=== PATIENT | male | born 1970 | race Caucasian/White ===

== ENCOUNTER 2023-08-29 20:07 | Observation (INO) | payer OTHER, SELFPAY ==
[2023-08-29 16:59] VITALS: BP 180/108
[2023-08-29 17:05] LABS: Glucose - Point of Care 103 mg/dl (70-99)
[2023-08-29 17:13] VITALS: BMI 39.0
[2023-08-29 17:19] VITALS: BP 168/90
[2023-08-29 17:24] LABS: % Basophils 0.7 % (0-2); % Eosinophils 3.1 % (0-6); % Immature Granulocytes 0.2 % (0-0.5); % Lymphocytes 37.9 % (20.5-51.1); % Monocytes 13.2 % (1.7-9.3); % Neutrophils 44.9 % (42.2-75.2); Absolute Eosinophils 0.1 10^3/uL (0-0.7); Absolute Lymphocytes 1.6 10^3/uL (1.2-3.4); Absolute Monocytes 0.6 10^3/uL (0.1-0.6); Absolute Neutrophils 1.9 10^3/uL (1.4-6.5); Hematocrit 47.5 % (39.0-52.0); Hemoglobin 16.6 g/dL (13.0-18.0); Mean Corp Hgb Conc. 34.9 g/dL (33.0-37.0); Mean Corpuscular Hgb 30.5 pg (27.0-31.0); Mean Corpuscular Volume 87.3 fL (80.0-94.0); Mean Platelet Volume 9.9 fL (7.4-10.4); Nucleated Red Blood Cells % 0 % (-); Platelet Count 157 10^3/uL (130-400); Red Blood Cell Count 5.44 10^6/uL (4.70-6.10); Red Cell Dist. Width 13.2 % (11.5-14.5); White Blood Cell Count 4.3 10^3/uL (4.8-10.8)
[2023-08-29 17:34] LABS: INR 1.07; PT 13.7 Sec (11.4-14.6)
[2023-08-29 17:35] LABS: APTT 29.7 Sec (23.4-35.0)
[2023-08-29 17:45] LABS: ALT (SGPT) 63 U/L (0-50); AST (SGOT) 52 U/L (17-59); Albumin 4.6 g/dl (3.5-5.0); Alkaline Phosphatase 47 U/L (38-126); Blood Urea Nitrogen 16 mg/dl (9-20); Calcium 9.7 mg/dl (8.4-10.2); Carbon Dioxide 23 mmol/L (22-30); Chloride 103 mmol/L (98-107); Estimated Creatinine Clearance > 125 ml/min; Glucose 103 mg/dl (70-99); Potassium 4.4 mmol/L (3.5-5.1); Sodium 137 mmol/L (135-145); Total Bilirubin 0.9 mg/dl (0.2-1.3); Total Protein 7.3 g/dl (6.3-8.2); eGFR > 60.00
[2023-08-29 17:55] LABS: Troponin I < 0.012 ng/ml
[2023-08-29] MEDS: ASPIRIN 325 MG PO (19:11)
[2023-08-29] MEDS: PLAVIX 300 MG PO (19:12)
[2023-08-29 19:18] VITALS: BP 148/93
--- NOTE | 2023-08-29 19:57 | HPS.HSE ---
Family Physician
-
Family Physician: John Abbott
Chief Complaint
-
Numbness
History of Present Illness
Patient is a 52y M with PMH significant for hypothyroidism and obesity who presents to ED complaining of numbness and tingling. Patient states that he felt well this AM upon waking. He noted numbness / tingling sensation of his L lower lip
around 9AM. He describes it as feeling as if he had just left the dentist. Patient states that the numbness gradually expanded throughout the day to include the L cheek / jaw area. He called his PCP and was seen at their office this afternoon.
At that time, he also appreciated some numbness in the L shoulder area. He was referred to the ED for further evaluation.
Patient denies any focal weakness, facial asymmetry, slurred speech, vision changes, headache, etc.
He denies any prior history of similar symptoms in the past. He denies any recent trauma / injury. He has no neck stiffness / pain / etc.
In the ED, patient continues to note some numbness in the face / anterior shoulder area.
Medical History
Past Medical History
Past Medical History: Reports Other
Additional Past Medical History:
Hypothyroidism
Obesity
Hypertension
Past Surgical History: Reports Other
Additional Past Surgical History:
Left Finger Surgery (trauma / reattachment)
Social History
Tobacco: Smoker (Current every day smoker. 1/2 ppd. Total of 20 pack years.)
Alcohol: Occasional (Rarely.)
Drug: None
Personal:
Living: With Family
Family History
Family History: Not pertinent
Allergies / Home Medications
Allergies reflects when Allergies were last updated in [facility].
Home Medications with original date entered in [facility]
Allergy/Medication List:
Allergies
Allergy/AdvReac Type Severity Reaction Status Date / Time
No Known Allergies Allergy Verified 08/29/23 17:02
Home Medications
cholecalciferol (vitamin D3) 25 mcg (1,000 unit) tablet (Vitamin D3) 25 mcg PO DAILY 08/29/23
levothyroxine 175 mcg tablet 175 mcg PO DAILY 08/29/23
magnesium 250 mg tablet 250 mg PO DAILY 08/29/23
multivitamin 1 tab PO DAILY 08/29/23
zinc acetate 50 mg (zinc) capsule 50 mg PO DAILY 08/29/23
Review of Systems
-
History Source: Patient
A 12 point ROS was completed and negative except as noted: Yes
Constitutional: Denies Fever, Fatigue or Chills
EENT: Denies Sore Throat
Respiratory: Denies Cough or Trouble Breathing
Cardiac: Denies Chest Pain or Palpitations
Abdomen/GI: Denies Abdominal Pain, Nausea or Vomiting
: Denies Dysuria or Frequency
Musculoskeletal: Denies Joint Pain or Edema
Neurological: Reports Numbness; Denies Dizzy, Headache or Weakness
Psych: Denies Depression or Anxiety
Physical Exam
Vital Signs
Vital Signs
Temp Pulse Resp BP Pulse Ox
98.6 F 98 16 180/108 97
08/29/23 16:59 08/29/23 16:59 08/29/23 16:59 08/29/23 16:59 08/29/23 16:59
Physical Exam
General: Other (52y M in no acute distress.)
HEENT: Moist mucous membranes and PERRLA
Respiratory: Clear; No Wheezes, Rales or Rhonchi
Cardiac: S1/S2 and Regular Rhythm; No Murmur
GI: Soft, Non Tender, Non Distended and Normal Bowel Sounds
Musculoskeletal: No Clubbing, No Cyanosis and No Edema
Neuro: AO x 3 and Other (Sensation appears intact and symmetric. No motor deficits, slurred speech, facial asymmetry.)
Laboratory Results
-
08/29/23 17:08
05/30/24 17:08
Laboratory Results
PT 13.7 Sec (11.4-14.6) 08/29/23 17:08
INR 1.07 08/29/23 17:08
APTT 29.7 Sec (23.4-35.0) 08/29/23 17:08
Total Bilirubin 0.9 mg/dl (0.2-1.3) 08/29/23 17:08
AST 52 U/L (17-59) 08/29/23 17:08
ALT 63 U/L (0-50) H 08/29/23 17:08
Alkaline Phosphatase 47 U/L (38-126) 08/29/23 17:08
Troponin I < 0.012 ng/ml 08/29/23 17:08
Impression/Plan
-
A/P: Patient is a 52y M with PMH significant for hypothyroidism and obesity who presents to ED for evaluation of L facial numbness and tingling.
Paresthesias
CVA / TIA
- Observe overnight for further evaluation and treatment.
- Initial CT head is unremarkable.
- Not TNK candidate given mild deficit + timing of presentation.
- Follow serial exams.
- ASA + Plavix for now.
- Neurology evaluation in the AM.
- MRI / MRA head and neck in the AM.
- Follow for any new / worsening symptoms.
- Check AM lipids. Consider statin if appropriate.
Essential Hypertension
- BP elevated in the ED at 180/108.
- Patient with history of hypertension but notes that he was able to discontinue meds after significant weight loss (300 to 220 lbs).
- Interestingly, this weight loss occurred off of T4 supplementation and patient notes that he has started to gain weight since restarting that med?
- Monitor for now with permissive hypertension. IV hydralazine as needed for SBP > 200.
- Adjust medications as needed for goal of normotension prior to discharge.
Hypothyroidism
- Continue current T4 supplementation.
- Update TFTs.
Tobacco Use Disorder
- Encourage smoking cessation.
- Patient declined nicotine replacement.
Obesity due to excess calories
- Affects all aspects of care.
- Patient notes significant weight loss over the past few years - though has started to regain some of that weight.
- Encourage continued healthy diet and increased exercise with goal of weight loss.
DVT Prophylaxis: SCDs
Code Status: Full
[2023-08-29 20:00] VITALS: BP 153/94
--- NOTE | 2023-08-29 20:17 | ED.GENMED ---
History of Present Illness
General
Chief Complaint: Numbness
Source: patient and spouse
Exam Limitations: none
Time Seen by Provider: 08/29/23 17:06
Nursing documentation reviewed up to this point in time: agreed with
Travel History
Have you had any contact with someone who has COVID-19?: No
Do you have any symptoms of coronavirus? Fever > 100 degrees, chills, cough, shortness of breath, sore throat, loss of taste or smell, muscle aches, or headache?: No
History of Present Illness
History of Present Illness:
52-year-old male with a past medical history of hypertension, hyperlipidemia, obesity, smoker who presents to the emergency room for evaluation of left facial numbness and shoulder numbness. Patient reports that he had acute onset of his symptoms
while he was driving this morning at around 8:30 AM. He says that he noticed numbness in the left lip that progressed to left facial and jaw numbness. He says that the symptoms have persisted throughout the day. He went to see his primary doctor
this afternoon for evaluation of his symptoms and while he was there he noticed progression of the numbness to the left upper arm. His primary doctor sent her to the emergency room to be evaluated with concern for possible stroke. He denies any
weakness in the extremities. He denies any change in his vision or speech. He has not noticed any facial droop. He denies any headache. He denies any neck pain. Denies any chest pain or palpitations. He denies having had similar symptoms in
the past.
Past History
Past History
ED Past Medical History: None
Social History
Tobacco: Smoker
Alcohol: Occasional
Living: with family
Employment: Employed
Review of Systems
Review of Systems
All Other Systems: ROS reviewed and negative except as documented in HPI and ROS
Constitutional: Denies fever
EENT: Reports other (Facial numbness)
Respiratory: Denies cough or trouble breathing
Cardiac: Denies chest pain or palpitations
ABD/GI: Denies abdominal pain, nausea or vomiting
: Denies flank pain
Musculoskeletal: Denies neck pain or back pain
Neurological: Reports numbness; Denies dizzy, headache or weakness
Phy Exam
Physical Exam
Physical Exam:
General: Awake, alert, oriented x3; no acute distress
Head: Normocephalic, atraumatic
Eyes: Conjunctiva normal, EOMI, pupils equal round and reactive to light bilaterally
Throat: Airway intact, handling secretions
Neck: Trachea midline, supple without meningismus
Lungs: Clear to auscultation bilaterally, no wheezing, rales, rhonchi
Heart: Regular rate and rhythm, no murmurs, gallops, or rubs
Abd: Soft, non distended, nontender
Neuro: Patient has subjective sensory deficit V2 and V3 distribution of the trigeminal nerve; cranial nerves otherwise intact 2 through 12; no limb ataxia; speech is fluid and there is no dysarthria or aphasia; motor function is intact 5/5
proximally and distally in the upper and lower extremities; he has a subjective sensory deficit in the left upper arm but is not limited to a dermatome, sensory function seems to be intact distal left upper extremity and is intact in the rest of his
extremities
Skin: no rash
Extremities: No edema in extremities, equal pulses in all extremities
Scores
NIH Stroke Score
Level of Consciousness: 0 - Alert
LOC Questions: 0-Answers both correctly
LOC Commands: 0-Performs both correctly
Best Horizontal Gaze: 0-Normal
Visual [place]: 0=Normal, no visual loss
Facial Palsy: 0=Normal, symmetrical
Motor - Right Arm: 0=No drift 10 seconds
Motor - Left Arm: 0=No drift 10 seconds
Motor - Right Le-No drift 5 seconds
Motor - Left Le-No drift 5 seconds
Limb Ataxia: 0-Absent
Sensation: 1-Mild loss
Best Language: 0-No aphasia
Dysarthria: 0-Normal
Extinction and Inattention: 0-No abnormality
Total Score:: 1
Thrombolytic Contraindication
Inclusion and Exclusion criteria reviewed: Yes
Reasons for NON-Tx with Thrombolytics ABSOLUTE Exclusions: Greater than 4.5 hrs from onset of sxs
Heart Failure Risk
Heart Failure Risk Score: Not Applicable
Heart Score for Chest Pain Patients
STEMI patient?: Not applicable
Withdrawal Assessment of Alcohol
Withdrawal Assessment Completed?: Not applicable
Course
Orders/Labs/Results
Orders:
Orders
08/29/23 17:05
Electrocardiogram (*1) Urgent
Reason for Study: TIA/Stroke
EKG- Treatment ONCE
08/29/23 17:06
EKG [Electrocardiogram (*1)] Urgent
Reason for Study: Other
Other Reason for Exam: md order
CT Head W/o Iv Contrast Urgent
Comment:
Reason For Exam: left facial numbness
08/29/23 17:07
EKG- Treatment ONCE
08/29/23 17:08
Complete Blood Count/With Diff Urgent
Comprehensive Metabolic Panel Urgent
PTT Urgent
Prothrombin Time Urgent
Troponin I Urgent
08/29/23 18:52
NEUROLOGY CONSULT Urgent
Consulting Provider: Otf Varela
Was physician already notified: Yes
Aspirin 325 mg PO NOW STA
Clopidogrel Bisulfate [Plavix] 300 mg PO NOW STA
08/29/23 19:53
Admit/Transfer Patient As Directed
Co-Sign Provider:
Level of Care: Observation services
Assign to:: Telemetry
Physician / Group: Miguel
Diagnosis: CVA / TIA
Reason for Telemetry: CVA/TIA
Date to Stop Telemetry: 09/01/23
Time to Stop Telemetry: 11:00
Code Status As Directed
Resuscitation Status: Full Code
09/01/23 11:00
DC Protocol for Telemetry ONCE
Abnormal Lab Results
08/29/23 08/29/23
17:02 17:08
WBC 4.3 L 10^3/uL
(4.8-10.8)
Monocytes % 13.2 H %
(1.7-9.3)
Glucose 103 H mg/dl
(70-99)
ALT 63 H U/L
(0-50)
POC Glucose 103 H mg/dl
(70-99)
08/29/23 17:08
08/29/23 17:08
Vital Signs
Initial and Last Documented VS:
Initial Vital Signs
Temp Pulse Resp BP Pulse Ox
37.0 C 98 16 180/108 97
08/29/23 16:59 08/29/23 16:59 08/29/23 16:59 08/29/23 16:59 08/29/23 16:59
Last Documented Vital Signs
Temp Pulse Resp BP Pulse Ox
37.0 C 76 19 153/94 95
08/29/23 16:59 08/29/23 20:00 08/29/23 19:45 08/29/23 20:00 08/29/23 20:00
MDM/Problems Addressed
Differential Diagnosis Includes:
Cervical radiculopathy, peripheral nerve palsy, stroke, electrolyte derangement
MDM/Problems Addressed:
52-year-old male with history as documented presents for evaluation of numbness in the face and left upper arm onset at 8:30 AM. No other neurologic symptoms or complaints. He arrived was hypertensive but with otherwise normal vitals. Physical
exam as above. He is outside the window for tPA/TNK and thus no stroke alert called. Will place an IV check labs including a CBC and a CMP. Will check an EKG and troponin although much lower suspicion that this is anginal equivalent. Will check
CT head. Will monitor closely reassess after the above.
Labs reviewed: CBC unremarkable, CMP no clinically significant abnormalities. His troponin is undetectable and with constant symptoms since 8:30 AM this is sufficient to rule out acute PA. His CT head shows no acute pathology. Case was discussed
with neurology�anatomy would be somewhat atypical for cervical radiculopathy given extension of sensory symptoms in the face. Could be a sensory only stroke especially with his significant risk factors and hypertension. Recommended treating with
aspirin and Plavix and admission for further workup to rule out CVA. No indication for emergent neck imaging right now, plan for MRI/MRA in AM. Case discussed with hospitalist for admission.
Chronic conditions affecting care:
Hypertension, hyperlipidemia, obesity, smoking�place him at higher risk for stroke
Acute Exacerbation and/or Progression of Chronic Illness:
Acutely hypertensive�permissive in the setting of possible CVA
Acute Exacerbation and/or Progression of Chronic Illness: HTN
*Radiology
Radiology exam reviewed: radiology read reviewed
*Pulse Oximetry
Patient hypoxic: no
*EKG
Interpreted by ED Provider?: Yes
Heart Rate: 85
Rate: normal
Rhythm: sinus
[place]: normal axis
Interval: normal interval
QRS Pattern: normal QRS
Ischemia: no ischemia
*Critical Care Note
Total Time (30-74mins, 75-104mins- exclusive of procedures): Not Applicable
Data Reviewed
Review of Other/Old Records Reveals: Labs and Records
Source: patient, spouse and physician (Discussed with primary physician via [place] text who referred to the ER)
Further Testing Considered But Not Given:
Considered need for CTA head and neck but after discussion with neurology will hold off
Patient Management
Discussion with other providers: Hospitalist (Discussed with hospitalist) and [employer] (Discussed with neurologist)
Escalation/DeEscalation of care consider admission/obs:
Admission indicated
ED Attending Note
-
Portions of this chart may have been created with voice recognition software.� Occasional wrong word or��sound alike� substitutions may have occurred due to the inherent limitations of voice recognition software.
Discharge Plan
Departure
Patient Disposition: Admit
Date of Disposition: 08/29/23
Time of Disposition: 18:55
Presentation/result/management discussed w/ accepting MD/DO: Hospitalist
Discharge Problem:
Acute CVA (cerebrovascular accident), Hypertension
Interventions
Interventions:
*Risk Screen - Suicide Last Done: 08/29/23 17:17
*General Assessment Last Done: 08/29/23 17:14
*Neglect/Abuse Screening Last Done: 08/29/23 17:17
ED- Fall Risk Assessment Last Done: 08/29/23 17:19
*ED COVID-19 Vaccine History Last Done: 08/29/23 17:14
ED- Neurological Assessment Last Done: 08/29/23 18:58
[2023-08-29 21:25] VITALS: BP 148/82
[2023-08-29 21:26] VITALS: BMI 37.2
[2023-08-29 22:47] LABS: TSH Reflex To Free T4 3.93 uIU/ml (0.47-4.68)
[2023-08-29 23:08] VITALS: BP 125/79
--- NOTE | 2023-08-29 23:40 | PTCARENOTE ---
Pt. arrived to 3W from the ED via stretcher. Pt. able to safely ambulate into room 316-1. [facility] 0. at bedside with patient. Patient AAOx3 and able to make needs known. Oriented to unit. Call agudelo within reach. Plan of care ongoing.
[2023-08-30] VITALS (7 sets, daily range): BP systolic 120–175; BP diastolic 72–103; PULSE 58–78; O2SAT 97; BMI 37.1
[2023-08-30] MEDS: SYNTHROID 175 MCG PO (05:44)
--- NOTE | 2023-08-30 08:02 | CON.NEURO4 ---
Addendum entered and electronically signed by Otf Varela MD 08/30/23 10:59:
I saw and evaluated the patient I reviewed the note by Justina Beckett and agree with the findings the following comments:
52-year-old male with a past medical history of hypothyroidism obesity former hypertension no longer on medication presented to hospital with left facial and arm paresthesia. His symptoms are still present to a minor extent on the left side of
face. He describes it as similar to a numbing by the dentist. The symptoms started yesterday around 9 AM beginning on the left side of face then involving the left jaw and ear and then left shoulder. No history of similar events no recent head or
neck trauma or any neck or spine issues. No walking difficulties or weakness or any incoordination or weakness of hand or coordination of hand function. No family history of early stroke TIA or coronary events. He had lost a lot of weight oddly
after stopping medications for hypothyroidism, after weight loss blood pressure improved and no longer taking blood pressure medications and also had formerly been on atorvastatin but due to weight loss and improved with no longer taking aspirin.
No history of migraine-like headaches with any history of any migraine aura.
Neurologic examination is unremarkable, normal mental status cranial nerves motor function of the hands and arms and gait
Spurling maneuver is negative
MRI brain shows no acute or chronic infarction no hemorrhages masses or edema seen
MRA of the head shows no significant intracranial stenosis or occlusion or aneurysm, P-comm on the left side
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
Assessment: Likely this is a more benign disorder such as cervical area peripheral nerve irritation. No symptoms of weakness that would warrant a brain MRI of the cervical spine.
Patient's symptoms are still ongoing but improved and present to a minor extent so this would not be a TIA.
Do not feel that this is MRI negative stroke.
Recommendations
-Can stop the order for transthoracic echocardiogram
-Can discontinue aspirin and clopidogrel
-Reassured the patient that this will most likely improve with time, and to be watchful for any signs of left hand or arm weakness. Not seeing indication for cervical spine imaging with no weakness, pain, or walking difficulty
-No barriers to discharge
Original Note:
Documented by User: Justina Bishop NP 08/30/23 10:15
Consultation - Neurology 4
-
CONSULTING PHYSICIAN: Baljeet Varela MD
REFERRING PHYSICIAN: ER/Dr. Richards
DICTATED BY: SAV Hernandez
DATE/TIME OF REQUEST: 08/29/23
DATE/TIME OF CONSULTATION: 08/30/23
Reason for Consultation: CVA
History of Present Illness:
This is a 52-year-old right-handed male who has presented to the hospital on 08/29/23 with report of numbness. Patient reports that he woke up yesterday (08/29/23) feeling in his usual state. He went to work and was driving around 0830 when he
suddenly developed numbness on the left side of his mouth. The numbness then spread to his left jaw and up towards his left ear. He describes the numbness as the feeling of novocaine wearing off. he called his PCP and they had him come in for
evaluation. In his PCP's office the numbness spread to his left shoulder and they referred him to the ER for further evaluation. CT head was obtained on arrival in the ER and is negative for any acute abnormalities. Blood pressure was 180/108. By
1400 his symptoms started improving and the numbness was mostly isolated to his left mouth. NIHSS was 1 and he was not a candidate for TNK/IAT due to low NIHSS/improving symptoms. Today (08/30/23), patient reports that he still has slight numbness on
his left lower lip, otherwise his symptoms have resolved. He denies any headache, dizziness, vision changes, speech/swallow difficulty, neck/back pain, weakness, nausea, chest pain, palpitations, and shortness of breath. He reports having high blood
pressure years ago but he lost a significant amount of weight and his blood pressure normalized. He has been on atorvastatin in the past but reports his cholesterol improved and he also stopped taking that. He denies any head/neck injuries. He also
reports having mild sinus infection symptoms one week ago. He denies any history of migraines, TIA, stroke, or events similar to this in the past. He is not taking any blood-thinning medications.
Past Medical History: HTN, HLD, hypothyroidism, abdominal lymphadenopathy, obesity
Surgical History: Left hand middle finger repair
Family History: Reviewed and noncontributory.
Social History: Current smoker, 10 cigarettes/day. Rare alcohol. No illicit drug use.
Allergies: No known allergies.
Home Medications: See below.
Review of Symptoms:
Patient denies any fever, headache, chest pain, shortness of breath, GI or symptoms.
�Per the HPI.�All systems are reviewed negative except above.
Physical Exam:
The patient is afebrile, abdomen is nondistended, breathing is unlabored, skin is warm and dry, no edema.
NIH Stroke Scale:
I performed the NIH stroke scale on the patient on 08/30/23 at 0820. The patient scored 1 points on the NIH stroke scale assessment, which were assigned as follows: See below.
Neurologic Examination:
The patient is awake, alert and oriented x 3. He is able to follow commands and answer questions appropriately. There is no aphasia or dysarthria. On cranial nerve assessment, pupils are 3 mm bilateral, round and reactive to light and
accommodation. Visual velarde are full. Extraocular movements are intact. Facial sensations are intact and bilaterally symmetrical, there is no facial asymmetry. Hearing is intact bilaterally to normal conversation volume. Tongue palate and uvula are
midline. Sternocleidomastoid strengths are full bilaterally. Motor strengths are 5/5 bilateral upper and lower extremities on medical research [place] scale. There is no drift or involuntary movement noted. Deep tendon reflexes are 2+ bilateral
upper and lower extremities and Babinski is absent bilaterally. Sensations of touch, temperature and vibration are intact and bilaterally symmetrical. There was no extinction noted on double simultaneous stimulation. Coordination is intact by finger
to nose bilaterally.
Lab Results: See below.
Neuro Imaging:
1. CT Head 08/29/23: No acute intracranial abnormality noted
Differentials for the patient's presentation include:
1. Concern for a small ischemic stroke or TIA possibly producing symptoms given significant risk factors for stroke.
2. Metabolic disturbance possibly producing symptoms but less likely.
Patient has the following risk factors for their symptoms: HTN, HLD, smoker
IV Tenecteplase/IAT candidacy: NIHSS was 1 and he was not a candidate for TNK/IAT due to low NIHSS/improving symptoms.
Recommendations:
-Continue DAPT with aspirin 81mg and Plavix 75mg daily for 21 days. After 21 days, discontinue Plavix and continue aspirin 81mg daily only, indefinitely.
-MRI brain, MRA head/neck pending.
-Goal normotension.
-TTE pending.
-LDL goal <70. LDL is 136. Initiate atorvastatin 40mg daily.
-Goal normoglycemia, hbA1c is pending.
-NIHSS and neurological checks per unit guidelines.
-Provide patient with a stroke education packet.
-Smoking cessation counseling.
-PT/OT/St evaluations.
-DVT prophylaxis.
-Will follow pending results.
Discussed patient care with: Dr. Varela, the patient
Vital Signs and Labs
-
Vital Signs and Labs:
Vital Signs
Temp Pulse Resp BP Pulse Ox
97.8 F 67 16 157/100 95
08/30/23 07:00 08/30/23 07:00 08/30/23 07:00 08/30/23 07:00 08/30/23 07:00
PT 13.7 Sec (11.4-14.6) 08/29/23 17:08
INR 1.07 08/29/23 17:08
APTT 29.7 Sec (23.4-35.0) 08/29/23 17:08
Sodium 137 mmol/L (135-145) 08/29/23 17:08
Potassium 4.4 mmol/L (3.5-5.1) 08/29/23 17:08
BUN 16 mg/dl (9-20) 08/29/23 17:08
Glucose 103 mg/dl (70-99) H 08/29/23 17:08
Calcium 9.7 mg/dl (8.4-10.2) 08/29/23 17:08
Medications
-
Active Medications
Generic Name Dose Route Start Last Admin
Trade Name Freq PRN Reason Stop Dose Admin
Acetaminophen 650 mg 08/29/23 21:07
Acetaminophen 325 Mg Tablet PO 09/26/23 21:06
Q4HPRN PRN
Mild Pain / Temp > 101
Aspirin 81 mg 08/30/23 08:00
Aspirin 81 Mg Chewable Tablet PO 09/27/23 07:59
DAILY SILAS
Clopidogrel Bisulfate 75 mg 08/30/23 08:00
Clopidogrel 75 Mg Tablet PO 09/27/23 07:59
DAILY SILAS
Hydralazine HCl 5 mg 08/29/23 21:07
Hydralazine 20 Mg/Ml Vial IV 09/26/23 21:06
Q6HPRN PRN
SBP > 200
Levothyroxine Sodium 175 mcg 08/30/23 06:00 08/30/23 05:44
Levothyroxine 175 Mcg Tablet PO 09/27/23 05:59 175 mcg
DAILY @ 0600 SILAS Administration
Sodium Chloride 0 flush 08/29/23 22:00
Sodium Chloride 0.9% (Flush) Syringe IV 09/26/23 21:59
PER PROTOCOL SILAS
Home Medications
�Medication �Instructions �Recorded
cholecalciferol (vitamin D3) 25 25 mcg PO DAILY 08/29/23
mcg (1,000 unit) tablet (Vitamin
D3)
levothyroxine 175 mcg tablet 175 mcg PO DAILY 08/29/23
magnesium 250 mg tablet 250 mg PO DAILY 08/29/23
multivitamin 1 tab PO DAILY 08/29/23
zinc acetate 50 mg (zinc) capsule 50 mg PO DAILY 08/29/23
NIH Stroke Score
Subsequent NIH Scale
Date of Subsequent NIH Scale: 08/30/23
Time of Subsequent NIH Scale: 08:20
NIH Stroke Score
Level of Consciousness: 0 - Alert
LOC Questions: 0-Answers both correctly
LOC Commands: 0-Performs both correctly
Best Horizontal Gaze: 0-Normal
Visual Velarde: 0=Normal, no visual loss
Facial Palsy: 0=Normal, symmetrical
Motor - Right Arm: 0=No drift 10 seconds
Motor - Left Arm: 0=No drift 10 seconds
Motor - Right Le-No drift 5 seconds
Motor - Left Le-No drift 5 seconds
Limb Ataxia: 0-Absent
Sensation: 1-Mild loss
Best Language: 0-No aphasia
Dysarthria: 0-Normal
Extinction and Inattention: 0-No abnormality
Total Score:: 1
Modified [place] (mRS) Score
Modified [place] Scale (mRS): No significant disability. Able to carry out usual activities.
Score: 1

Documented by User: Otf Varela MD 08/30/23 10:54
NIH Stroke Score
NIH Stroke Score
Total Score:: 1
Modified [place] (mRS) Score
Score: 1
[2023-08-30] MEDS: PLAVIX 75 MG PO (08:07)
[2023-08-30] MEDS: LOW STRENGTH ASPIRIN 81 MG PO (08:07)
[2023-08-30 08:14] LABS: Hematocrit 44.2 % (39.0-52.0); Mean Corp Hgb Conc. 33.9 g/dL (33.0-37.0); Mean Corpuscular Hgb 29.9 pg (27.0-31.0); Mean Corpuscular Volume 88.2 fL (80.0-94.0); Mean Platelet Volume 10.3 fL (7.4-10.4); Platelet Count 136 10^3/uL (130-400); Red Blood Cell Count 5.01 10^6/uL (4.70-6.10); Red Cell Dist. Width 13.2 % (11.5-14.5); White Blood Cell Count 3.5 10^3/uL (4.8-10.8)
[2023-08-30 09:08] LABS: Blood Urea Nitrogen 16 mg/dl (9-20); Calcium 8.7 mg/dl (8.4-10.2); Carbon Dioxide 24 mmol/L (22-30); Chloride 106 mmol/L (98-107); Estimated Creatinine Clearance > 125 ml/min; Glucose 107 mg/dl (70-99); HDL Cholesterol 36 mg/dl; LDL Cholesterol, Calculated 136 mg/dl; Potassium 4.3 mmol/L (3.5-5.1); Sodium 135 mmol/L (135-145); Total Cholesterol 211 mg/dl (50-199); Triglyceride 198 mg/dl (10-149); Very Low Density Lipoprotein 39 mg/dl (0-30); eGFR > 60.00
--- NOTE | 2023-08-30 10:09 | PTOTSP ---
PATIENT FUNCTIONING INDEPENDENTLY ON LEVEL SURFACES WELL ELEVATIONS REQUIRING NO ACUTE CARE SKILLED P.T. AT THIS TIME. WILL DISCHARGE FROM P.T. SERVICES.
--- NOTE | 2023-08-30 10:54 | PTOTSP ---
SPEECH THERAPY SWALLOW EVALUATION:
Patient exhibits grossly functional oropharyngeal swallow at this time. No predisposing dysphagia risk factors. MRI results negative for CVA. Patient reporting he feels back at baseline level of functioning at this time; Denied speech/language
impairments. No further speech or swallow follow up is indicated at this time. Recommend Regular texture diet, thin liquids. Meds whole with liquid as best tolerated.
RECOMMEND:
1) Regular texture diet, thin liquids
2) Meds whole with liquid as best tolerated
3) Swallow follow up is not indicated at this time
[2023-08-30 11:59] LABS: Glycohemoglobin (HgbA1c) 5.7 % (4.0-5.6)
[2023-08-30 12:27] LABS: Folate 10.8 ng/ml (2.76-20); Vitamin B12 288 pg/ml (239-931)
--- NOTE | 2023-08-30 13:09 | W.PN.HOSP.TC ---
Today's Communication/Plan
-
Await echocardiogram
Discharge
Assessment / Plan
Assessment / Plan
Gen-AAOx3, NAD, obese
HEENT-NC, AT, anicteric, clear oral mm
Neck-supple
CV-reg, no M, +S1/S2
Lungs-clear B/L
Abd-soft, NT, ND
Ext-no edema
Musculoskeletal-no cyanosis, clubbing
Skin-warm and dry
Neuro-grossly non-focal
Psych-calm, cooperative
Left facial/left arm paresthesias -appreciate neurology input. No stroke noted on brain MRI. Peripheral nerve lesion possible. Cleared by neurology for discharge.
Neurology attempted to cancel echocardiogram but unfortunately it was already completed. Will follow-up report.
Elevated blood pressure -unclear if underlying essential hypertension. Patient claims his blood pressures at home are normal, not on antihypertensives at home. He states his blood pressures in the doctor's office are not elevated as well.
Encouraged him to monitor blood pressure closely at home as he is certainly at risk for hypertension.
Leukopenia -RBC and platelet count normal. This may be his normal level. Recommend outpatient follow-up with PCP.
Impaired fasting glucose - hemoglobin A1c 5.7%. Weight loss encouraged.
Low Vitamin B12 level -start oral repletion.
Hypothyroidism -continue Synthroid. TSH normal.
Tobacco dependence - smoking cessation encouraged. He smokes 10 cigarettes daily.
Obesity due to excess calories
Full code
Dispo -anticipate discharge this afternoon. Await echocardiogram report prior to discharge.
updated at the bedside.
Anticipated Discharge: Today
Subjective/Interval History
-
Date of Service: August 30, 2023
Patient seen and examined. No complaints currently.
Objective Data
-
Labs:
Laboratory Results
08/30/23
07:20
WBC 3.5 L
Hgb 15.0
Hct 44.2
Plt Count 136
Sodium 135
Potassium 4.3
Chloride 106
Carbon Dioxide 24
BUN 16
Creatinine 0.7
Glucose 107 H
Calcium 8.7
Vital Signs:
Vital Signs
Temp Pulse Resp BP Pulse Ox
97.8 F 105 16 120/72 98
08/30/23 07:00 08/30/23 11:20 08/30/23 11:20 08/30/23 11:20 08/30/23 11:20
I&O
08/29/23 08/30/23 08/31/23
06:59 06:59 06:59
Intake Total 480 / 480
Balance 480 / 480
Review of Systems
-
History Source: Patient
All other systems: Reviewed and negative
--- NOTE | 2023-08-30 15:06 | W.DS.TRANS ---
DC Summary - Hip Hop Dancer
-
Discharge Instructions:
Discharge Diagnosis/Procedures Paresthesias, prediabetes, low B12 level
Diet Low Fat,Low Cholesterol
Activity As tolerated
Driving Restrictions As prior to admission
Bathing Restrictions None
Instructions:
Stand-Alone Forms:
Changes to Home Medications: No
Discharge Medications:
DC Medications w/original date entered in [employer]
cholecalciferol (vitamin D3) 25 mcg (1,000 unit) tablet (Vitamin D3) 25 mcg PO DAILY Supplement 08/29/23
levothyroxine 175 mcg tablet 175 mcg PO DAILY Thyroid 08/29/23
magnesium 250 mg tablet 250 mg PO DAILY Electrolyte Repletion 08/29/23
multivitamin 1 tab PO DAILY Supplement 08/29/23
zinc acetate 50 mg (zinc) capsule 50 mg PO DAILY Supplement 08/29/23
cyanocobalamin (vitamin B-12) 1,000 mcg tablet 1,000 mcg PO DAILY #30 tabs 08/30/23
Home Medication Changes
Pending Results: No
--- NOTE | 2023-08-30 15:44 | CM ---
Addendum entered by Asha Love 08/30/23 15:59:
Family Physician verified: Fuad Pierre, [address], [place]; phone: [phone]
Pharmacy Verified: [facility], [facility]
Original Note:
Met with patient and at bedside
Outpatient observation form explained and signed
Patient lives with his spouse in a one floor rancher; 3 steps to enter; bath has walk-in shower with grab bar and shower chair
PLOF: independent with ambulation, stairs, and ADLs; drives; works
Transporation: will transport home
SNF/Rehab/Home Health utilization history: none
Plan: discharge to home today; no needs
[2023-08-30] MEDS: VITAMIN B-12 1000 MCG PO (15:56)
== END 2023-08-30 16:59 | disposition home or self-care (01) ==
LOC: 3 WEST ACU 20:07
PROVIDERS: ADMITTING PHYSICIAN Hospitalist; ATTENDING PHYSICIAN Hospitalist; CONSULT PHYSICIAN Student in an Organized Health Care Education/Training Program; EMERGENCY PHYSICIAN Emergency Medicine; FAMILY PHYSICIAN Family Medicine
DX: R20.2 Paresthesia of skin (principal); E03.9 Hypothyroidism, unspecified; E66.09 Other obesity due to excess calories; I10 Essential (primary) hypertension; F17.210 Nicotine dependence, cigarettes, uncomplicated; D72.819 Decreased white blood cell count, unspecified; E78.5 Hyperlipidemia, unspecified; R73.01 Impaired fasting glucose; Z68.37 Body mass index [BMI] 37.0-37.9, adult; Z79.890 Hormone replacement therapy
CPT/HCPCS: 70450; 70544; 70548; 70551; 80048; 80053; 80061; 82607; 82728; 82746; 82962; 83036; 84443; 84484; 85025; 85027; 85610; 85730; 92610; 93005; 93306; 97162; 97166; 99285; 99406; A9585; G0378; Q9950